=== PATIENT | male | born 1965 | race Caucasian/White ===

== ENCOUNTER 2017-05-22 10:18 | Inpatient (IN) | payer BC, OTHER ==
[~2017-05-22] VITALS: Ht 172.7 cm; Wt 147.9 kg
[2017-05-22] VITALS (9 sets, daily range): BP systolic 132–153; BP diastolic 71–88
--- NOTE | ~2017-05-22 | O ---
[facility] [place] [address] [place] [address] OPERATIVE REPORT Name: JAMIN LOZOYA Room #: 424-P ADM IN M.R.#: [id number] Admission: 05/22/17 Attend Phys: Nilson Ashton Discharge: Date of : 61 Report #: [id number] THIS REPORT FOR: //name// CC: Murtaza Mills DATE OF SERVICE: 05/22/2017 SERVICE: Orthopedics. FACILITY: [facility]. SURGEON: Vivek Franco MD. PROFESSOR OF ART: None. PREOPERATIVE DIAGNOSIS: Acute right thumb flexor tendon tenosynovitis. POSTOPERATIVE DIAGNOSIS: Acute right thumb flexor tendon tenosynovitis. PROCEDURE PERFORMED: Right thumb irrigation and debridement, flexor tendon sheath, with release of the A1 gretta. ANESTHESIA TYPE: Sedation MAC. COMPLICATIONS: None. DRAINS: None. SPECIMENS: Culture swabs x 2. FINDINGS: 1. Purulence within the tendon sheath. 2. Irrigation and debridement performed. Flexor tendon confirmed to be intact. HISTORY AND INDICATIONS: The patient is a 52-year-old gentleman who sustained a cat bite a couple days ago. This progressively worsened. He presented to the Emergency Room with signs consistent with the flexor tendon tenosynovitis. He had treatment options discussed with him. Based on his clinical examination, we recommended surgical measures and he wished to proceed with that treatment avenue. The risks, benefits, alternatives and indications for surgery were discussed with him in detail. The risks include but are not limited to pain, bleeding, infection, injury to nerves or blood vessels, persistent pain despite [facility] [address] [place] [address] OPERATIVE REPORT Name: JAMIN LOZOYA Room #: 424-P ADM IN M.R.#: [id number] Admission: 05/22/17 Attend Phys: Nilson Ashton Discharge: Date of : 61 Report #: [id number] surgical intervention, need for further surgery including repeat I and D, stiffness, need for occupational therapy, as well as complications related to anesthesia, such as stroke, heart attack, pulmonary complications, thromboembolic disease and . Despite these risks, he wished to proceed. PROCEDURE IN DETAIL: After right upper extremity was correctly identified in the preoperative holding area as the operative extremity, the patient was taken to the operating room where monitored anesthetic care was induced without complication. The right upper extremity had tourniquet applied to it. The right arm was then prepped and draped in standard sterile fashion. A time-out procedure was performed. Antibiotics were not redosed as he is already on a regimen. The arm was elevated and then tourniquet was inflated to 250 mmHg. After the timeout, a 2 cm transverse incision was made over the proximal flexor crease, where the cat bite was located. The incision was made just through the skin, and then blunt dissection was taken down to the flexor tendon sheath which was visualized and then it was incised in line with its fibers to release the A1 gretta, and then the tendon was delivered out of the sheath. The second incision was made on the radial border of the thumb, dorsal to the flexor crease. The neurovascular bundle was avoided during the dissection, and then a blunt dissection was taken across the volar aspect of the thumb, to the distal portion of the flexor tendon sheath, which was opened, and then irrigation was lavaged through both ends of the wound, and fluid was seen to egress on the opposite wound to confirm that the fluid was being passed successfully through the tendon sheath. A blunt dissection was then taken proximally through the proximal wound, into the thenar eminence and the thumb was mobilized. All purulence was expressed. The primary finding was gross purulence within the flexor tendon sheath, at the time of opening the sheath. There was approximately 1-2 mL of purulence. Cultures were taken x 2 to ensure good specimen. A total of approximately 300 mL of fluid was irrigated through the wound and then a dry sterile dressing was applied with the radial based splint. Tourniquet was let down at that time. There were no complications. All counts were recorded as correct. Wound check on POD#1. No plans for repeat surgery at this time. <ELECTRONICALLY SIGNED> By: Vivek Franco MD 05/23/17 0733 2147 0046 Vivek Franco MD /nt
--- NOTE | ~2017-05-22 | HC ---
[facility] [place] [address] CONSULTATION Name: JAMIN LOZOYA Room #: 424-P [facility] IN M.R.#: [id number] Admission: 05/22/17 Attend Phys: Nilson Ashton Discharge: Date of : 61 Report #: [id number] THIS REPORT FOR: //name// CC: Murtaza Mills DATE OF SERVICE: 05/22/2017 INFECTIOUS DISEASE CONSULTATION REASON FOR CONSULTATION: I was asked to evaluate concerning right hand infection after a cat bite. HISTORY OF PRESENT ILLNESS: The patient is a 52-year-old; 2 days ago, his pet cat bit him while he was trying to give him a bath. Went to an urgent care and was placed on doxycycline. The patient reports ALLERGY TO ERYTHROMYCIN AND AMOXICILLIN, which he thinks is more GI upset. Despite being on doxycycline, his hand continued to swell with increased erythema, mild chills and worsening pain. He presents through the Emergency Room for further evaluation. Tetanus immunization is up to date. No other injuries noted. Pet cat had all its shots and was otherwise healthy. PAST MEDICAL HISTORY: Hypothyroidism and obstructive sleep apnea. ALLERGIES: ALLERGY TO ERYTHROMYCIN AND AMOXICILLIN. MEDICATIONS: Synthroid, multivitamin and fish oil. FAMILY HISTORY: Noncontributory. SOCIAL HISTORY: Nonsmoker, minimal alcohol intake. Has significant other. No HIV risk factors. REVIEW OF SYSTEMS: No cardiopulmonary, GI or complaints. PHYSICAL EXAMINATION: VITAL SIGNS: Afebrile, hemodynamically stable. GENERAL: Alert, cooperative and pleasant, in no acute distress. HEENT: Unremarkable. NECK: Supple. LUNGS: Clear. HEART: Regular without murmur. ABDOMEN: Soft and nontender. [facility] [address] [address] CONSULTATION Name: JAMIN LOZOYA Jennifer Room #: 424-P [facility] IN M.R.#: [id number] Admission: 05/22/17 Attend Phys: Nilson Ashton Discharge: Date of : 61 Report #: [id number] EXTREMITIES: Right upper extremity swelling involving the dorsum and hayden aspect of his hand, mostly over the thenar eminence and thumb. There was a bite graham over the MCP joint. He had tenderness involving flexion and extension of the thumb. He had tenderness in the wrist as well. There was mild tenderness in this forearm with no erythema extending beyond the wrist. Sensation in the fingers was normal. Capillary refill normal. Pulses in the wrist were normal. There was no adenopathy in the epitrochlear or axillary region. LABORATORY STUDIES: Hemoglobin 14, WBC 7.4, platelet count 188,000, differential unremarkable. Sodium 135, potassium 3.7, bicarbonate 30, creatinine 0.8. Liver function tests normal. X-rays of the hand, no bony abnormalities. IMPRESSION AND PLAN: A 52-year-old with cat bite to the right hand, suspecting possible septic arthritis, tenosynovitis from the injury. The patient is intolerant of amoxicillin, but I do not think he is allergic. For now, we will go with meropenem to cover both gram-positive and gram-negative organisms. We would like MRI scan. Sedimentation rate. Orthopedic hand surgery to evaluate for possible washout. <ELECTRONICALLY SIGNED> By: Richard Ruiz MD 05/23/17 1151 1139 0530 Richard Ruiz MD /nt
[~2017-05-22 10:18] MED LIST: FISH OIL 1,0001 EAC5 PO; MULTIVITAMINS PO; SYNTHROID200 MCG PO
[2017-05-22 11:14] LABS: ABSOLUTE NEUTROPHILS 4.3 thou/uL (1.4-8.2); BASOPHILS 0.7 % (0.0-2.0); EOSINOPHILS 2.9 % (0.0-3.0); HEMATOCRIT 41.6 % (42.0-52.0); HEMOGLOBIN 14.1 gm/dL (14.0-18.0); LYMPHOCYTES 28.7 % (24.0-44.0); MCH 29.7 pg (26.0-34.0); MCV 87.5 fL (80.0-100.0); MONOCYTES 10.2 % (1.0-8.0); PLATELET COUNT 188 thou/uL (150-400); POLYS 57.5 % (36.0-66.0); RBC 4.75 mil/uL (4.50-6.00); RDW 13.5 % (10.5-14.5); WBC 7.4 thou/uL (4.0-11.0)
[2017-05-22 11:16] LABS: MANUAL DIFF NO
[2017-05-22 11:18] LABS: CALCIUM 8.9 mg/dL (8.5-10.1); CREATININE 0.8 mg/dL (0.7-1.3); POTASSIUM 3.7 mmol/L (3.5-5.1)
[2017-05-22 11:26] LABS: ALBUMIN 3.9 g/dL (3.4-5.0); TOTAL BILIRUBIN 0.6 mg/dL (<0.1-1.0); TOTAL PROTEIN 7.4 g/dL (6.4-8.2)
[2017-05-23] VITALS (7 sets, daily range): BP systolic 121–140; BP diastolic 68–87
[2017-05-24 03:47] VITALS: BP 122/73
[2017-05-24 07:39] VITALS: BP 124/83
[2017-05-24 15:56] VITALS: BP 120/64
[2017-05-24 20:00] VITALS: BP 142/83
[2017-05-25 04:30] VITALS: BP 153/89
[2017-05-25 05:38] LABS: HEMATOCRIT 38.1 % (42.0-52.0); HEMOGLOBIN 12.5 gm/dL (14.0-18.0); MCH 28.9 pg (26.0-34.0); MCHC 32.8 g/dL (28.0-37.0); RBC 4.33 mil/uL (4.50-6.00); WBC 5.4 thou/uL (4.0-11.0)
[2017-05-25 05:50] LABS: ALBUMIN 3.2 g/dL (3.4-5.0); CALCIUM 8.3 mg/dL (8.5-10.1); CREATININE 0.7 mg/dL (0.7-1.3); PHOSPHORUS 3.3 mg/dL (2.5-4.9); POTASSIUM 3.7 mmol/L (3.5-5.1)
[2017-05-25 08:22] VITALS: BP 133/84
[2017-05-25 09:40] VITALS: BP 121/76
[2017-05-25] MEDS ORDERED: MEROPENEM1 GM IV (12:00)
== END 2017-05-25 10:55 | disposition home health service (06) | DRG 982 ==
LOC: ER 10:18 → 4E 11:38 → ER 11:47 → 4E 11:47
PROVIDERS: Hospitalist; Physician Assistant
PROC: 0LB70ZZ Excision of Right Hand Tendon, Open Approach (ICD-10-PCS; principal; 2017-05-22)
DX: L03.011 Cellulitis of right finger (principal); Z68.42 Body mass index [BMI] 45.0-49.9, adult; M65.841 Other synovitis and tenosynovitis, right hand; S61.051A Open bite of right thumb without damage to nail, initial encounter; G47.33 Obstructive sleep apnea (adult) (pediatric); E03.9 Hypothyroidism, unspecified; E66.9 Obesity, unspecified; W55.01XA Bitten by cat, initial encounter; Y93.89 Activity, other specified; Y92.89 Other specified places as the place of occurrence of the external cause; Y99.8 Other external cause status; Z79.899 Other long term (current) drug therapy; Z88.1 Allergy status to other antibiotic agents
CPT/HCPCS: 10084; 27001; 50010; 50101; 50386; 57091; 62110; 62850; 70005

== ENCOUNTER 2019-01-15 21:27 | Emergency (ER) | payer BC, OTHER ==
[~2019-01-15] VITALS: Ht 172.7 cm; Wt 152.0 kg
[~2019-01-15 21:27] MED LIST changes: +MEROPENEM1 GM IV
[2019-01-15 22:32] LABS: ABSOLUTE NEUTROPHILS 3.6 thou/uL (1.4-8.2); BASOPHILS 1.2 % (0.0-2.0); EOSINOPHILS 4.3 % (0.0-3.0); HEMATOCRIT 44.3 % (42.0-52.0); LYMPHOCYTES 35.3 % (24.0-44.0); MCH 30.3 pg (26.0-34.0); MCHC 33.7 g/dL (28.0-37.0); MCV 89.7 fL (80.0-100.0); MONOCYTES 10.6 % (1.0-8.0); PLATELET COUNT 207 thou/uL (150-400); POLYS 48.6 % (36.0-66.0); RBC 4.94 mil/uL (4.50-6.00); RDW 13.4 % (10.5-14.5); WBC 7.4 thou/uL (4.0-11.0)
[2019-01-15 22:35] LABS: ANION GAP 9 mmol/L (7-16); BUN 24 mg/dL (7-18); CHLORIDE 98 mmol/L (98-107); CO2 31 mmol/L (21-32); CREATININE 1.1 mg/dL (0.7-1.3); GLUCOSE 105 mg/dL (74-106); POTASSIUM 3.1 mmol/L (3.5-5.1); SODIUM 138 mmol/L (136-145)
[2019-01-15 22:43] LABS: TROPONIN-I <0.06 ng/mL (<0.06)
[2019-01-16 00:19] VITALS: BP 138/83
--- NOTE | 2019-01-17 08:16 | EKG ---
[address] [address] ELECTROCARDIOGRAM REPORT Name: HOLLI LOZOYAWILLY Rodriguez [id number] ������������������ Admission: 01/15/19 ������������������ Attend Phys: Discharge: 01/16/19 ������������������ Date of : 61 Report #: [id number] ����������������������������������������������������������������� [id number] THIS REPORT FOR: //name// [facility] ED Test Date: 2019-01-15 Test Time: 22:59:29 Pat Name: JAMIN LOZOYA Department: Room: Gender: M Regulatory Manager: marleni : 1965 Requested By: Vivek Montiel Order Number: [id number] MD: Ayo Desai Measurements Intervals [place] Rate: 74 P: 20 [place]: 175 QRS: 34 QRSD: 101 T: -4 QT: 391 QTc: 434 Interpretive Statements Sinus rhythm Nonspecific ST segment abnormality Compared to ECG 11/22/2011 10:39:05 Sinus bradycardia no longer present Electronically Signed On 01-17-2019 8:15:54 CDT by Ayo Desai [email or web address] ��������������������������������������������� <ELECTRONICALLY SIGNED> ���������������������������������������� By: Ayo Desai MD ��������������������������������������������� 01/17/19 0815 2259 2259 Ayo Desai MD /YURI
== END 2019-01-16 00:21 | disposition home or self-care (01) ==
LOC: ER 21:27
PROVIDERS: Emergency Medicine
DX: R03.0 Elevated blood-pressure reading, without diagnosis of hypertension (principal); E03.9 Hypothyroidism, unspecified; G47.30 Sleep apnea, unspecified; Z88.1 Allergy status to other antibiotic agents

== ENCOUNTER 2021-07-15 22:17 | Emergency (ER) | payer BC ==
[~2021-07-15] VITALS: Ht 172.7 cm; Wt 142.9 kg
[2021-07-15] MEDS ORDERED: HYDROCHLOROTH12.5 M2 PO (22:31)
[2021-07-15] MEDS ORDERED: COZAAR 25 MG TA25 M1 PO (22:31)
[2021-07-16] MEDS ORDERED: AUGMENTIN 875-1 EACH PO (00:16)
[2021-07-16 00:30] VITALS: BP 129/68
== END 2021-07-16 00:28 | disposition home or self-care (01) ==
LOC: ER 22:17
DX: S61.211A Laceration without foreign body of left index finger without damage to nail, initial encounter (principal); E03.9 Hypothyroidism, unspecified; Z79.899 Other long term (current) drug therapy; Z79.891 Long term (current) use of opiate analgesic; Z88.1 Allergy status to other antibiotic agents; W54.0XXA Bitten by dog, initial encounter; Y93.89 Activity, other specified; Y92.89 Other specified places as the place of occurrence of the external cause; Y99.8 Other external cause status

== ENCOUNTER 2021-09-11 18:35 | Emergency (ER) | payer BC ==
[~2021-09-11] VITALS: Ht 170.2 cm; Wt 142.9 kg
[~2021-09-11 18:35] MED LIST changes: +AUGMENTIN 875-1 EACH PO; +COZAAR 25 MG TA25 M1 PO; +HYDROCHLOROTH12.5 M2 PO
[2021-09-11] MEDS ORDERED: PREDNISONE 20 M20 MG PO (20:25)
[2021-09-11] MEDS ORDERED: CYCLOBENZAPRINE5 MG PO (20:25)
[2021-09-12 05:38] VITALS: BP 121/77
--- NOTE | 2021-09-12 08:00 | EKG ---
[address] [address] ELECTROCARDIOGRAM REPORT Name: JAMIN LOZOYA [facility] [id number] Admission: 09/11/21 Attend Phys: Discharge: 09/11/21 Date of : 61 Report #: [id number] [facility] ED Test Date: 2021-09-11 Test Time: 18:45:53 Pat Name: JAMIN LOZOYA Department: Room: Gender: M Us Marketing Director: TATI : 1965 Requested By: Margi Latham Order Number: [id number] MD: Pramod Cohen Measurements Intervals [place] Rate: 55 P: 22 [place]: 174 QRS: 36 QRSD: 106 T: 31 QT: 434 QTc: 416 Interpretive Statements Sinus rhythm Low voltage, precordial leads Baseline wander in lead(s) V1 Compared to ECG 01/15/2019 22:59:29 Low QRS voltage now present ST (T wave) deviation no longer present Electronically Signed On 09-12-2021 8:00:03 PLANT TECH by Pramod Cohen [email or web address] <ELECTRONICALLY SIGNED> By: Pramod Cohen MD, FAC 09/12/21 0800 1845 1845 Pramod Cohen MD, [facility] /EPI
== END 2021-09-11 21:07 | disposition home or self-care (01) ==
LOC: ER 18:35
DX: M54.12 Radiculopathy, cervical region (principal); E03.9 Hypothyroidism, unspecified; I10 Essential (primary) hypertension; Z79.899 Other long term (current) drug therapy; Z88.1 Allergy status to other antibiotic agents